=== PATIENT | male | born 1995 | race Caucasian/White ===

== ENCOUNTER 2016-08-11 08:01 | Emergency (ER) | payer MEDICAID ==
[~2016-08-11] VITALS: Ht 182.9 cm; Wt 93.2 kg
[2016-08-11] MEDS ORDERED: ONDANSETRON HCL 4 MG/2 ML VIAL IVP ONE (08:45)
[2016-08-11] MEDS ORDERED: SODIUM CHLORIDE 0.9% 1,000 ML IV ONE (08:45)
[2016-08-11 08:59] LABS: EOSINOPHILS % (AUTO) 0.1 % (1.0-6.0); HEMOGLOBIN 16.1 g/dL (13.5-17.5); LYMPHOCYTES # (AUTO) 0.4 K/uL (1.0-4.8); LYMPHOCYTES % (AUTO) 2.5 % (22.0-44.0); MEAN CORPUSCULAR HEMOGLOBIN 25.8 pg (26.0-34.0); MEAN CORPUSCULAR HGB CONC 32.8 G/dL (31.0-37.0); MEAN CORPUSCULAR VOLUME 79 fL (80-100); MONOCYTES # (AUTO) 0.3 K/uL (0.1-1.0); MONOCYTES % (AUTO) 2.3 % (2.0-9.0); NEUTROPHILS # (AUTO) 13.9 K/uL (1.8-7.7); PLATELET COUNT (AUTO) 228 K/uL (150-450); RED BLOOD CELL COUNT(AUTO) 6.24 MIL/uL (4.50-5.90); RED CELL DISTRIBUTION WIDTH 13.3 % (11.5-14.5); WHITE BLOOD COUNT (AUTO) 14.6 K/uL (4.5-11.0)
[2016-08-11 09:01] LABS: NEUTROPHILS % (AUTO) 95.1 % (40.0-70.0)
[2016-08-11 09:15] LABS: ANION GAP 6 mmol/L (8-16); CALCIUM, TOTAL 8.8 mg/dL (8.8-10.5); CARBON DIOXIDE 28 mmol/L (22-29); CHLORIDE 104 mmol/L (98-107); CREATININE 0.92 mg/dL (0.60-1.30); GLOMERULAR FILTR. RATE CALC > 60 mL/min (>60); SODIUM SERUM 138 mmol/L (136-145); UREA NITROGEN, BLOOD 14 mg/dL (7-18)
[2016-08-11 09:21] LABS: ALANINE AMINOTRANSFERASE 36 U/L (12-78); ALBUMIN 3.8 g/dL (3.4-5.0); ASPARTATE AMINOTRANSFERASE 20 U/L (15-37); BILIRUBIN,TOTAL 0.5 mg/dL (0.1-1.0); TOTAL PROTEIN, SERUM 7.5 g/dL (6.4-8.2)
[2016-08-11 09:59] LABS: RBC MORPHOLOGY COMMENT NORMAL RBC MORPH
[2016-08-11 11:00] VITALS: BP 113/47
== END 2016-08-11 11:05 | disposition home or self-care (01) ==
LOC: EMS 08:04
DX: R11.2 Nausea with vomiting, unspecified (principal)
CPT/HCPCS: 36415; 80053; 85025; 96361; 96374; 99285; J2405; J7030